=== PATIENT | female | born 1955 | race Caucasian/White ===

== ENCOUNTER → 2018-10-21 12:56 | Outpatient (CLI) | payer BC, SELFPAY ==
--- NOTE | 2018-10-21 12:59 | MR_ITS ---
MR lumbar spine wo con HISTORY: ITS.REASON: NEUROGENIC CLAUDICATION ORDERING PHYSICIAN: Rito Diehl MD PATIENT AGE: 63 years Comparison: None TECHNIQUE: Standard multiplanar multiecho sequences are performed without contrast. 3-D MIP and myelographic images are also rendered and reviewed FINDINGS: There is moderate anterior subluxation of L5 on S1 with severe loss of disc space height and facet hypertrophy. There are probably small L5 pars interarticularis defects as well. There is also associated moderate foraminal stenosis because of the subluxation bilaterally. Vertebral body heights and signal from the osseous marrow elements are normal. There is mild loss of disc space height at L3-4. There is severe loss of disc space height in the thoracic spine at T10-11 and T11-12 with associated mild bulges without mass effect. L4-5 level shows facet operative free without bulge or herniation and no thecal sac attenuation. L3-4 shows diffuse fykk-da-nunjdjof bulge with severe facet hypertrophy and generalized moderate thecal sac attenuation. L1-2 level is normal. L2-3 shows minimal bulge without mass effect and mild facet hypertrophy. The remainder of the nerve roots and foraminal areas are normal. Visualized portions of the conus are normal. There is some crowding of the nerve roots in the thecal sac at L3-4. Paraspinal areas are normal and there is a 15 mm small right renal posterior cortical cyst. IMPRESSION: Grade 2 anterior spondylolisthesis of L5 on S1 related to small spondylolysis and primarily from the facet arthrosis. There is associated chronic severe degenerative disease and bilateral moderate foraminal stenosis. L3-4 moderate acquired central canal stenosis from the bulge and posterior element hypertrophy. Degenerative disc disease in the lower thoracic spine with mild bulges.
== END ==
PROVIDERS: PCP Family Medicine; Visit Provider Family Medicine
DX: M48.062 Spinal stenosis, lumbar region with neurogenic claudication (principal)
CPT/HCPCS: 72148; 76376

== ENCOUNTER 2020-08-17 13:05 | Outpatient (RCR) | payer BC, SELFPAY | END 2020-11-05 13:11 | disposition home or self-care (01) | LOC: PT 13:05 | DX: I48.91 Unspecified atrial fibrillation (principal) | CPT/HCPCS: 93798 ==

== ENCOUNTER 2024-01-08 15:36 | Emergency (ER) | payer BC, SELFPAY ==
--- NOTE | 2024-01-08 15:43 | PC.NURSE ---
Dr. Bryan at [facility] for pt eval
--- NOTE | 2024-01-08 15:44 | ECG_ITS ---
APPROVED REPORT Exam: Resting ECG HR:67 bpm ECG Measurements Heart Rate 67 AXES QRSd 80 QRS 23 QT 396 T 68 QTc 412 Conclusion a fib no ischemic change Electronically signed by : DAYSI ABBOTT, 01/08/2024 21:05:08
[2024-01-08 15:48] VITALS: BP 177/88; PULSE 63; RESP 20; O2SAT 97
[2024-01-08 15:51] VITALS: BP 177/88; PULSE 64; RESP 12; TEMP 36.8; O2SAT 97; BMI 49.1
--- NOTE | 2024-01-08 15:52 | XR_ITS ---
FINAL REPORT CLINICAL HISTORY: Shortness of breath, PND, orthopnea, tachycardia COMPARISON: None FINDINGS: A single portable view of the chest was obtained. The heart is enlarged. Pulmonary vascularity is within normal limits. The mediastinum is within normal limits. No acute pulmonary abnormality is identified. There are mild degenerative changes of the shoulders. IMPRESSION: No active cardiopulmonary disease. Reviewed, Interpreted and Dictated by Karson Patel III, MD Transcribed by India Evans Authenticated and [facility]
--- NOTE | 2024-01-08 15:57 | PC.NURSE ---
RT notified of vbg ordered
[2024-01-08 16:05] LABS: Basophils # 0.1 K/mm3 (0-0.2); Eosinophils # 0.2 K/mm3 (0.0-0.4); Eosinophils % 2.3 % (0.1-12.0); Hematocrit 41.9 % (37.0-47.0); Hemoglobin 13.1 g/dL (12.2-16.2); Lymphocytes # 0.9 K/mm3 (0.7-4.5); Lymphocytes % 11.2 % (10-50); Mean Corpuscular HGB Conc 31.2 g/dL (31.8-35.4); Mean Corpuscular Hemoglobin 29.3 pg (27.0-31.2); Mean Corpuscular Volume 93.9 fl (81-99); Mean Platelet Volume 8.3 fl (7.4-10.4); Monocytes # 0.4 K/mm3 (0.1-1.0); Monocytes % 5.3 % (1.7-9.3); Neutrophils # 6.5 K/mm3 (1.8-7.8); Neutrophils % 80.3 % (37.0-80.0); Platelet Count 283 K/mm3 (142-424); Red Blood Count 4.46 M/mm3 (4.20-5.40); White Blood Count 8.1 K/mm3 (4.8-10.8)
[2024-01-08 16:06] LABS: VBG Base Excess 5.6 mmol/L (-2.4-2.3); VBG HCO3 31.1 mmol/L (23-30); VBG Oxygen Saturation 68.5 % (50-70); VBG PH 7.36 mmol/L (7.31-7.41); VBG PO2 34.4 mmol/L (28-40); VBG Total CO2 32.8 mmol/L (23-27)
--- NOTE | 2024-01-08 16:08 | [facility].EDCP ---
Discharge Plan Disposition Patient Disposition: Home, Self-Care Prescriptions Prescriptions: New furosemide 40 mg tablet 40 mg PO DAILY Qty: 35 0RF potassium chloride 20 mEq tablet extended release 20 meq PO DAILY Qty: 30 0RF No Action citalopram 40 MG tablet 1 tab PO DAILY diltiazem HCl 360 MG capsule,extended release 24 hr 360 mg PO DAILY levothyroxine 25 MCG tablet 25 mcg PO DAILY sitagliptin phos-metformin 50-1000 tablet 1 tab PO BID canagliflozin 300 MG tablet 1 tab PO DAILY amoxicillin 500 MG capsule 500 mg PO TID Qty: 30 0RF fluticasone propionate 120 SPR/BOT bottle 1 - 2 spr NS DAILY Qty: 1 0RF Rx Instructions: each nostril daily Referrals Follow up/Referrals: Rito Diehl MD [Primary Care Provider] - See instructions Activity Restrictions/Add. Instructions Additional Instructions/Restrictions: Call your family doctor to establish care for this visit to the emergency department and schedule follow-up within 48 hours to ensure improvement. If you have any worsening of your condition or any other concerning signs or symptoms, return to the emergency department or your primary care doctor for further evaluation. 40 mg Lasix twice daily for 5 days followed by 40 mg Lasix each morning. 20 mill equivalents of potassium daily. Be sure to follow-up with your family doctor to establish care for this visit to the emergency department and ensure improvement in BNP, as well as electrolytes. Also follow-up with cardiology regarding this visit to the emergency department for formal echo and determination of severity of heart failure Clinical Impressions Clinical Impression: New onset of congestive heart failure, Heart palpitations, PND (paroxysmal nocturnal dyspnea) Print Language Print Language: Nepali Discharge ED Provider: Nikita Bryan HPI General Chief Complaint: Arrhythmia/Palpitations Stated Complaint: SOA,Fast heart rate Time Seen by Provider: 01/08/24 15:55 History of Present Illness HPI narrative: Please note that above description of symptoms, in this electronic medical record under categorization of recalled from ER triage doctor by RN are reflective of an initial nursing assessment, however, is not reflective of my full history and physical exam that was personally taken and clarified. Consequentially, this preceding description of symptoms, which may include the patient's categorized chief complaint in the EMR, do not reflect my personal clinical impression, and the ultimate description of history of present illness and patient stated complaints should be deferred to this section of the note. Unless stated otherwise or congruent with this section of the note, additional signs, symptoms, or incongruence should be interpreted as inaccurate with my clinical impression. Related Data Home Medications ?Medication ?Instructions ?Recorded ?Confirmed canagliflozin 300 mg tablet 1 tab PO DAILY Diabetes 05/15/19 05/15/19 citalopram 40 mg tablet 1 tab PO DAILY Depression 05/15/19 05/15/19 diltiazem HCl 360 mg capsule,24 360 mg PO DAILY HTN 05/15/19 05/15/19 hr,extended release levothyroxine 25 mcg tablet 25 mcg PO DAILY THYROID 05/15/19 05/15/19 sitagliptin phosphate 50 1 tab PO BID Diabetes 05/15/19 05/15/19 mg-metformin 1,000 mg tablet Previous Rx's ?Medication ?Instructions ?Recorded amoxicillin 500 mg capsule 500 mg PO TID #30 caps 05/15/19 fluticasone propionate 50 1 - 2 spr NS DAILY ##1 05/15/19 mcg/actuation nasal spray,suspension furosemide 40 mg tablet 40 mg PO DAILY #35 tabs 01/08/24 potassium chloride 20 mEq 20 meq PO DAILY #30 tabs 01/08/24 tablet,extended release Allergies Allergy/AdvReac Type Severity Reaction Status Date / Time cefaclor [From Ceclor] Allergy Unknown Verified 01/08/24 16:20 allergy reaction morphine Allergy Unknown Verified 01/08/24 16:20 allergy reaction clavulanic acid AdvReac Unknown Verified 01/08/24 16:20 [From Augmentin] allergy reaction [facility] Disclaimer: The information contained in this section may have been updated after the patient was seen, as this information can be updated by other users. Social History Smoking Status: Current every day smoker tobacco type: cigarettes packs per day: 1 alcohol intake: never current occupational status: other Travel in the last 8 weeks: None ROS Obtained: Yes All systems reviewed & no additional complaints except as documented Physical Exam General General appearance: alert, in no apparent distress and obese ENT ENT exam: Present mucous membranes moist Neck Neck exam: Present normal inspection, full ROM and trachea midline; Absent meningismus Chest Chest inspection: Present normal inspection and symmetric chest wall rise Respiratory Respiratory exam: Present normal lung sounds bilaterally and wheezes (Inspiratory wheeze in upper lobes, quiet sounds in lower lung [place]); Absent respiratory distress, stridor, accessory muscle use or prolonged expiratory phase Cardiovascular Cardiovascular exam: Present regular rate, normal rhythm and other (Pulses equal and symmetric in upper and lower extremities) Abdominal Exam Abdominal exam: Present soft; Absent distention, tenderness, guarding, rebound or rigidity Extremities Exam Extremities exam: Present edema (Bilateral lower extremity 1+ pitting edema) Neurological Exam Neurological exam: Present alert, oriented X3, CN II-XII intact and normal gait; Absent motor sensory deficit Skin Skin exam: Present warm and dry; Absent cyanosis, diaphoresis or pallor HEART Score HEART Score HEART Score assessment performed?: Yes History (anamnesis): Slightly suspicious ECG: Normal Age: >65 years Risk factors: 3 or more risk factors Troponin: </= normal limit HEART Score: 4 Procedures Limited Ultrasound Indication:: Limited cardiac ultrasound Indication: Shortness of breath, palpitations Identified cardiac views: -Cardiac parasternal long axis -Cardiac parasternal short axis Findings: -Cardiac activity present -Gross wall motion normal -Pericardial effusion absent -Right heart strain absent -EPSS 7.7 mm Impression: -Mildly elevated EPSS, otherwise normal ultrasound. Images were saved to permanent archive The study was technically adequate CPT: 96049 This study was performed by pr, and I personally interpreted all images/videos. Based on my clinical judgement, these images were adequate and did not necessitate further imaging Views:: Limited lung ultrasound A focused ultrasound exam of the pleural spaces was performed to evaluate for pneumothorax, pulmonary edema, pleural effusion and/or consolidation. The ultrasound was performed with the following indications, as noted in the H&P: Shortness of breath, palpitations, PND/orthopnea Identified structures: Bilateral thoracic cavities were examined. Findings: Lung sliding: -Present B-lines: -2-3 per rib space inferiorly bilaterally Pleural effusion: -Absent bilaterally Consolidation: -Absent Impression: - Pneumothorax absent - Pleural effusion absent - B-lines present - Consolidation absent Images were saved to permanent archive The study was technically adequate CPT 64111-59 This study was performed by me, and I personally interpreted all images/videos. Based on my clinical judgement, these images were adequate and did not necessitate further imaging Critical Care Critical Care Time Critical Care Time: No Medical Decision Making Medical Records Medical records reviewed: Yes I reviewed the patient's medical records. Remy Inquiry Pt receiving controlled substance: No Remy was queried for this patient: No Vital Signs Vital Signs: 01/08/24 15:48 01/08/24 15:51 01/08/24 16:15 Temperature 98.2 F Temperature Source Oral Pulse Rate 63 60 Pulse Rate [Left] 64 Respiratory Rate 20 12 19 Blood Pressure 177/88 H Blood Pressure [Right Radial Artery] 177/88 H Blood Pressure Mean [Right Radial Artery] 117 Blood Pressure Source [Right Radial Artery] Automatic Cuff Blood Pressure Position [Right Radial Artery] Sitting 02 Sat by Pulse Oximetry 97 97 98 Oxygen Delivery Method Room Air Room Air 01/08/24 16:44 01/08/24 17:01 Temperature Temperature Source Pulse Rate 56 L 52 L Pulse Rate [Left] Respiratory Rate 20 20 Blood Pressure 184/80 H 191/80 H Blood Pressure [Right Radial Artery] Blood Pressure Mean [Right Radial Artery] Blood Pressure Source [Right Radial Artery] Blood Pressure Position [Right Radial Artery] 02 Sat by Pulse Oximetry 97 95 Oxygen Delivery Method Room Air Room Air Lab Data Labs: Lab Results 01/08/24 15:45: WBC 8.1, RBC 4.46, Hgb 13.1, Hct 41.9, MCV 93.9, MCH 29.3, MCHC 31.2 L, RDW 17.0, Plt Count 283, MPV 8.3, Neut % (Auto) 80.3 H, Lymph % (Auto) 11.2, [place] % (Auto) 5.3, Eos % (Auto) 2.3, Baso % (Auto) 1.0, Neut # (Auto) 6.5, Lymph # (Auto) 0.9, [place] # (Auto) 0.4, Eos # (Auto) 0.2, Baso # (Auto) 0.1, PT 11.2, INR 1.00, APTT 28.5, Sodium 136, Potassium 3.7, Chloride 103, Carbon Dioxide 31 H, Anion Gap 5.7, BUN 10, Creatinine 0.80, Estimated Creat Clear 41, Estimated GFR 72, Est GFR ( Amer) 87, Glucose 152 H, Calcium 9.0, Magnesium 1.4 L, Total Bilirubin 0.7, AST 22, ALT 23, Alkaline Phosphatase 60, Troponin I 0.02, NT-Pro-B Natriuret Pep 2710 H, Total Protein 6.9, Albumin 3.8, Globulin 3.1, Albumin/Globulin Ratio 1.2, TSH 2.46, Thyroxine (T4) 6.7 01/08/24 16:07: VBG pH 7.36, VBG pCO2 56.1 H, VBG pO2 34.4, VBG HCO3 31.1 H, VBG Total CO2 32.8 H, VBG O2 Saturation 68.5, VBG Base Excess 5.6 H, VBG Lactic Acid 2.1 H 01/08/24 16:25: Urine Color Yellow, Urine Appearance Clear, Urine pH 7.0, Ur Specific [place] 1.010, Urine Protein 2+ A, Urine Glucose (UA) 3+, Urine Ketones Negative, Urine Blood 1+ A, Urine Nitrate Negative, Urine Bilirubin Negative, Urine Urobilinogen 0.2, Ur Leukocyte Esterase Negative, Urine RBC 5-10, Urine WBC 3-5, Ur Squamous Epith Cells 10-20, Urine Bacteria 1+, Urine Yeast 1+ 01/08/24 15:45 01/08/24 15:45 Response Orders (Tests/Meds): ED MEDICATIONS Generic Name Dose Route Start Last Admin Trade Name Freq PRN Reason Stop Dose Admin Magnesium Sulfate 2 gm in 50 mls @ 50 mls/hr 01/08/24 16:29 01/08/24 16:37 Magnesium Sulfate 2gm/50ml Premix IV 01/08/24 17:28 50 mls/hr ONCE ONE Administration Discontinued Medications Generic Name Dose Route Start Last Admin Trade Name Freq PRN Reason Stop Dose Admin Furosemide 60 mg 01/08/24 16:58 01/08/24 17:02 Furosemide 40mg/4ml Vial IV 01/08/24 16:59 60 mg ONCE ONE Administration ORDERS Category Date Time Status POCUS Point of Care (ER Only) Stat Exams 01/08/24 15:52 Completed XR chest portable Stat Exams 01/08/24 15:52 Completed Complete Blood Count Auto Diff Stat Lab 01/08/24 15:45 Completed Comprehensive Metabolic Panel Stat Lab 01/08/24 15:45 Completed Magnesium Stat Lab 01/08/24 15:45 Completed NT Pro Brain Natriuretic Pep. Stat Lab 01/08/24 15:45 Completed PT INR [Prothrombin Time INR] Stat Lab 01/08/24 15:45 Completed PTT [Activated Partial Thrombo Time] Stat Lab 01/08/24 15:45 Completed T4 (Thyroxine) Stat Lab 01/08/24 15:45 Completed TSH [Thyroid Stimulating Hormone] Stat Lab 01/08/24 15:45 Completed Troponin I Q3H Lab 01/08/24 19:00 Ordered Troponin I Q3H Lab 01/08/24 22:00 Ordered Troponin I Stat Lab 01/08/24 15:45 Completed Urinalysis and Microscopic Stat Lab 01/08/24 16:25 Completed Venous Blood Gas Stat RT 01/08/24 16:07 Completed MDM Narrative Medical Decision Narrative: 68-year-old female history of hypertension, hyperlipidemia, hypothyroidism, diabetes, CAD status post [place] and stenting x 1, A-fib on aspirin and daily Eliquis presenting with palpitations and shortness of breath. Patient states that she started noticing palpitations 2 days prior to this on 02/04. States it started with intermittent palpitations with exertion. Patient states that she is largely sedentary secondary to chronic pain including back pain. States that 2 days ago she started noticing palpitations and shortness of breath with exertion. Also noticed shortness lying flat, has been propping herself up. Cough productive of clear to frothy sputum, no green, yellow, red, or other abnormalities. States that her cough is typically dry. Also notes that her lower extremity edema has gotten worse. Denies any chest pain, neurologic deficits, nausea or vomiting, fevers or chills, vomiting, urinary symptoms, or diarrhea/constipation. No new medication changes. History was obtained via conversation with patient and family. On arrival, patient hemodynamically stable, alert, oriented x4, appropriate, GCS 15, moving all extremities spontaneously, pupils equal and reactive to light. Full physical exam performed and significant for 68-year-old female who is pleasant, in no acute distress. Ambulated from wheelchair to bed with assistance, this is normal, per patient and family. Lungs with inspiratory wheezes in upper lung edmond, but quiet breath sounds in lower lung edmond. Cardiac exam with no murmurs gallops or rubs, no obvious JVD, but limited exam. Abdomen soft, nontender, nondistended. Patient's lower extremities with 1+ bilateral pitting edema, pulses are equal and lower extremities. Grossly neurologically intact. Differential includes CHF exacerbation, COPD exacerbation, pneumonia, bronchitis, ACS, [place], endocrinologic (thyroid, among others), pneumothorax, among other. Patient was given magnesium, Lasix for symptomatic management and correction of underlying abnormalities. Patient placed on continuous cardiac monitoring and continuous pulse ox with initial blood pressure 177/88 (reportedly high, per patient and family), heart rate 63, saturation 97% on room air. Independent interpretation of EKG shows 67 beats a minute A-fib with controlled rate. QRS 80, QTc 412. [place] normal. No acute ischemic change. Bedside [id number] cardiopulmonary ultrasound with intermittent B-lines, mildly elevated EPSS. Workup independently interpreted and significant for nonactionable CBC. Patient's VBG with compensated chronic respiratory acidosis, nonactionable. Patient's kidney function normal, magnesium low at 1.4, this was repleted IV. Patient's troponin 0.02, BNP elevated at 2700. On independent interpretation of imaging, patient does have edematous pulmonary fissures, no obvious, diffuse pulmonary edema. Also has mild cardiomegaly. See radiology read for full review of final results. Heart score 4. On reevaluation, patient resting comfortably in bed. 60 mg IV Lasix was given. Patient also given 40 mill equivalent p.o. potassium for borderline low potassium. Conversation with patient was had regarding inpatient admission for aggressive diuresis and monitoring of electrolytes versus home-going. Ultimately, patient chose home-going with outpatient Lasix therapy and close follow-up with PCP after a thorough discussion of the risks of doing so, including a discussion of potential alternative plans. These risks include but are not limited to clinical decompensation, laborer marine terminal disability and . The patient appears capable of making this decision. I have advised the patient to immediately return if there are any further problems or if they change their mind about seeking further care. I do feel this is appropriate given patient is in no acute distress, not requiring oxygen, minimally edematous chest x-ray, and good family support at home. 40 mg Lasix twice daily for 5 days, followed by 40 mg each morning sent to pharmacy. Close cardiology and PCP follow-up was discussed and patient is agreeable to this plan. Because patient at baseline without signs or symptoms of clinical decompensation, deemed appropriate for discharge. Results were relayed to patient who voiced understanding and were agreeable to outpatient management and follow up. I discussed my clinical impression with patient and answered all questions. At this time, the evidence for any other entities in the differential is insufficient to warrant any further testing or ED observation. This was explained as well. Advisory was given that persistent or worsening symptoms require further evaluation. I confirmed the understanding of this discussion. Building Services Coordinator disclaimer Much of this encounter note is an electronic pipeline welder spoken language to printed text. Electronic pipeline welder of the spoken language may permit errors. Although I have reviewed the note, some errors may still exist.
[2024-01-08 16:11] LABS: Lactate Venous 2.1 mmol/L (0.4-2.0); VBG PCO2 56.1 mmol/L (35-51)
[2024-01-08 16:15] VITALS: PULSE 60; RESP 19; O2SAT 98
[2024-01-08 16:18] LABS: Alanine Aminotransferase 23 U/L (12-78); Albumin Level 3.8 g/dl (3.5-5.0); Albumin/Globulin Ratio 1.2 (1.1-1.8); Alkaline Phosphatase 60 U/L (38-126); Anion Gap 5.7 mEq/L (5-15); Aspartate Amino Transferase 22 U/L (14-36); Bilirubin,Total 0.7 mg/dl (0.2-1.3); Blood Urea Nitrogen 10 mg/dl (7-17); Carbon Dioxide 31 mmol/L (22.0-30.0); Chloride 103 mmol/L (98-107); Creatinine Clearance Estimated 41 mL/min (50-200); Estimated Glomerular Filt Rate 72 ml/min (>60); GFR (African American) 87 ML/MIN (>60); Globulin 3.1 g/dL (1.3-3.2); Glucose 152 mg/dl (74-100); Magnesium 1.4 mg/dl (1.6-2.3); Potassium 3.7 mmoL/L (3.5-5.1); Sodium 136 mmol/L (136-145); Total Protein,Serum 6.9 g/dl (6.3-8.2)
--- NOTE | 2024-01-08 16:21 | PC.NURSE ---
Ophelia in RT called VBG results pH 7.36, PCO2 56.1, PAO2 34.4, Bicarb 31.1
[2024-01-08 16:29] LABS: Microscopic, Urine URINE MICROSCOPIC (MICROSCOPIC)
[2024-01-08 16:31] LABS: Prothrombin Time 11.2 seconds (10.1-12.5)
[2024-01-08 16:32] LABS: Appearance,Urine CLEAR (Clear); Bilirubin,Urine Negative (Negative); Blood, Urine 1+ (Negative); Color,Urine YELLOW (Yellow); Glucose,Urine (UA) 3+ (Negative); Ketones,Urine Negative (Negative); Leukocyte Esterase,Urine Negative (Negative); Nitrate,Urine Negative (Negative); Protein,Urine 2+ (Negative); Urobilinogen,Urine 0.2 EU/dl (0.2)
[2024-01-08 16:35] LABS: NT Pro Brain Natriuretic Pep. 2710 pg/mL (0-125)
[2024-01-08 16:37] LABS: Troponin I 0.02 ng/ml (0.00-0.034)
[2024-01-08] MEDS: MAGNESIUM SULFATE IN WATER 2 GM/50 ML PIGGYBACK IV (16:37)
[2024-01-08 16:42] LABS: T4 (Thyroxine) 6.7 ug/dl (5.53-11.0)
[2024-01-08 16:44] VITALS: BP 184/80; PULSE 56; RESP 20; O2SAT 97
[2024-01-08 16:45] LABS: Activated Partial Thrombo Time 28.5 seconds (22.8-30.6)
[2024-01-08 16:51] LABS: Bacteria,Urine 1+ /lpf; Yeast,Urine 1+ /lpf
[2024-01-08 16:56] LABS: Thyroid Stimulating Hormone 2.46 uIU/mL (0.465-4.68)
[2024-01-08 17:01] VITALS: BP 191/80; PULSE 52; RESP 20; O2SAT 95
[2024-01-08] MEDS: FUROSEMIDE 40MG/4ML VIAL 60 MG IV (17:02)
[2024-01-08] MEDS: POTASSIUM CHLORIDE 20MEQ TAB 40 MEQ PO (17:26)
--- NOTE | 2024-01-08 17:32 | PC.NURSE ---
Dr. Bryan at BS to update pt on results and current POC
[2024-01-08 17:49] VITALS: BP 191/80; PULSE 88; RESP 16; TEMP 36.8
[2024-01-08 20:09] LABS: Reflex Lactic Add Lactic Reflex
== END 2024-01-08 17:56 | disposition home or self-care (01) ==
PROVIDERS: Emergency Provider Emergency Medicine; PCP Family Medicine
DX: R00.2 Palpitations (principal); I11.0 Hypertensive heart disease with heart failure; I50.9 Heart failure, unspecified; R06.00 Dyspnea, unspecified; F17.210 Nicotine dependence, cigarettes, uncomplicated
CPT/HCPCS: 71045; 80050; 80053; 81001; 82803; 83735; 83880; 84436; 84443; 84484; 85025; 85610; 85730; 93005; 96365; 96375; 99285; J1940; J3475